=== PATIENT | male | born 1960 | race Caucasian/White ===

== ENCOUNTER 2023-05-12 13:58 | Emergency (ER) | payer BC ==
[~2023-05-12] VITALS: Ht 172.7 cm; Wt 90.7 kg
[2023-05-12 14:52] VITALS: BP_SYST 123; PULSE 77; RESP 18; TEMP 98.7; O2SAT 97
[2023-05-12] MEDS: DEXAMETHASONE SOD PHOSPHATE 4 MG/ML VIAL IVP ONE (17:04)
[2023-05-12] MEDS: FAMOTIDINE 20 MG TABLET PO ONE (17:05)
[2023-05-12] MEDS: LORATADINE 10 MG TABLET PO ONE (17:06)
[2023-05-12 17:35] LABS: BASOPHILS % (AUTO) 0.4 % (0.0-2.0); EOSINOPHILS # (AUTO) 0.2 K/uL (0.0-0.4); EOSINOPHILS % (AUTO) 2.4 % (0.0-4.0); HEMATOCRIT 37.7 % (36-54); HEMOGLOBIN 12.7 g/dL (14.0-18.0); LYMPHOCYTES # (AUTO) 0.9 K/uL (1.0-5.5); LYMPHOCYTES % (AUTO) 11.2 % (20.5-51.5); MEAN CORPUSCULAR HEMOGLOBIN 29 pg (27-31); MEAN CORPUSCULAR HGB CONC 34 % (32-36); MEAN CORPUSCULAR VOLUME 87 fL (79.0-98.0); MONOCYTES # (AUTO) 0.8 K/uL (0.0-1.0); MONOCYTES % (AUTO) 9.4 % (1.7-9.3); NEUTROPHILS # (AUTO) 6.5 K/uL (1.8-7.7); NEUTROPHILS % (AUTO) 76.6 % (40.0-70.0); PLATELET COUNT (AUTO) 177 K/uL (130-430); RED BLOOD CELL COUNT(AUTO) 4.34 MIL/uL (4.2-6.2); RED CELL DISTRIBUTION WIDTH 13.3 % (9.0-15.0); WHITE BLOOD COUNT (AUTO) 8.4 K/uL (4.8-10.8)
[2023-05-12 17:53] LABS: CALCIUM 8.2 mg/dL (8.4-11.0); CREATININE 1.02 mg/dL (0.55-1.30); POTASSIUM 3.7 mmol/L (3.5-5.1)
[2023-05-12] MEDS: LIDOCAINE 1% 10 MG/ML, 20 ML MDV INJ ONE (21:10)
[2023-05-12] MEDS ORDERED: AUG875 PO (22:45)
[2023-05-12] MEDS: AMOXICILLIN/POTASSIUM CLAV 875 MG TABLET PO ONE (22:49)
[2023-05-12 22:51] VITALS: BP_SYST 92; PULSE 72; RESP 16; TEMP 98.7; O2SAT 98
== END 2023-05-12 22:52 | disposition home or self-care (01) ==
LOC: SED 13:58
DX: L03.211 Cellulitis of face (principal); K13.0 Diseases of lips; E11.9 Type 2 diabetes mellitus without complications; I10 Essential (primary) hypertension; E78.5 Hyperlipidemia, unspecified; Z79.899 Other long term (current) drug therapy
CPT/HCPCS: 99285; 96374; 10060; 70487; 80048; 85025; 36415; J1100; J2001

== ENCOUNTER 2023-06-28 13:04 | Emergency (ER) | payer BC ==
[~2023-06-28] VITALS: Ht 172.7 cm; Wt 93.0 kg
[~2023-06-28 13:04] MED LIST: AUG875 PO
[2023-06-28 13:39] VITALS: BP_SYST 129; PULSE 79; RESP 18; TEMP 98; O2SAT 98
[2023-06-28] MEDS ORDERED: AUG875 PO (16:43)
[2023-06-28] MEDS ORDERED: IBUP-1969 PO (16:43)
[2023-06-28 16:52] VITALS: BP_SYST 132; PULSE 81; RESP 16; TEMP 98.1; O2SAT 98
== END 2023-06-28 16:51 | disposition home or self-care (01) ==
LOC: SED 13:04
DX: R22.0 Localized swelling, mass and lump, head (principal); M27.2 Inflammatory conditions of jaws; E11.9 Type 2 diabetes mellitus without complications; I10 Essential (primary) hypertension; E78.5 Hyperlipidemia, unspecified; Z79.899 Other long term (current) drug therapy
CPT/HCPCS: 70486; 99284